=== PATIENT | female | born 2000 | race Caucasian/White ===

== ENCOUNTER 2025-04-24 11:34 | Outpatient (CLI) | payer OTHER, BC, MEDICAID, SELFPAY ==
[2025-04-24 11:39] VITALS: BP 172/93; PULSE 114
[2025-04-24 11:41] VITALS: RESP 16; BMI 41.5
[2025-04-24 11:54] VITALS: BP 154/90; PULSE 108
[2025-04-24 12:09] VITALS: BP 151/90; PULSE 102
[2025-04-24 12:24] VITALS: BP 154/91; PULSE 98
== END 2025-04-24 12:30 | disposition home or self-care (01) ==
LOC: OPOB 11:35 → OBGYN 11:36
PROVIDERS: Visit Provider Family Medicine
DX: O16.9 Unspecified maternal hypertension, unspecified trimester (principal); Z3A.00 Weeks of gestation of pregnancy not specified
CPT/HCPCS: 59025

== ENCOUNTER 2025-04-27 17:36 | Outpatient (CLI) | payer OTHER, BC, MEDICAID, SELFPAY ==
[2025-04-27 17:45] VITALS: BP 143/86; PULSE 98
[2025-04-27 18:05] VITALS: BP 141/79; PULSE 81
== END 2025-04-27 18:20 | disposition home or self-care (01) ==
LOC: OPOB 17:36 → OBGYN 17:37
PROVIDERS: Visit Provider Family Medicine
DX: O16.9 Unspecified maternal hypertension, unspecified trimester (principal); Z3A.00 Weeks of gestation of pregnancy not specified
CPT/HCPCS: 59025

== ENCOUNTER 2025-05-01 12:25 | Outpatient (CLI) | payer OTHER, BC, MEDICAID, SELFPAY ==
[2025-05-01 12:37] VITALS: BP 144/88; PULSE 115
[2025-05-01 12:38] VITALS: RESP 16; BMI 41.3
[2025-05-01 12:57] VITALS: BP 138/84; PULSE 96
== END 2025-05-01 13:03 | disposition home or self-care (01) ==
LOC: OPOB 12:30 → OBGYN 12:31
PROVIDERS: Visit Provider Family Medicine
DX: O13.9 Gestational [pregnancy-induced] hypertension without significant proteinuria, unspecified trimester (principal); Z3A.00 Weeks of gestation of pregnancy not specified
CPT/HCPCS: 59025

== ENCOUNTER 2025-05-03 10:12 | Outpatient (CLI) | payer OTHER, BC, MEDICAID, SELFPAY ==
[2025-05-03 10:17] VITALS: RESP 18
[2025-05-03 10:18] VITALS: BP 146/86; PULSE 99
[2025-05-03 10:22] VITALS: RESP 18; BMI 41.1
[2025-05-03 10:33] VITALS: BP 139/82; PULSE 92
[2025-05-03 10:40] VITALS: RESP 18
== END 2025-05-03 10:42 | disposition home or self-care (01) ==
LOC: OPOB 10:13 → OBGYN 10:21
PROVIDERS: Visit Provider Family Medicine
DX: O13.9 Gestational [pregnancy-induced] hypertension without significant proteinuria, unspecified trimester (principal); Z3A.00 Weeks of gestation of pregnancy not specified
CPT/HCPCS: 59025

== ENCOUNTER 2025-05-08 11:23 | Outpatient (CLI) | payer OTHER, BC, MEDICAID, SELFPAY ==
[2025-05-08 11:25] VITALS: BMI 41.8
[2025-05-08 11:45] VITALS: BP 147/90; PULSE 98
[2025-05-08 12:05] VITALS: BP 136/89; PULSE 100
[2025-05-08 12:25] VITALS: BP 136/87; PULSE 89
[2025-05-08 12:50] LABS: Nitrazine Paper, PH Negative
== END 2025-05-08 12:40 | disposition home or self-care (01) ==
LOC: OPOB 11:38 → OBGYN 11:40
PROVIDERS: Visit Provider Family Medicine
DX: O26.899 Other specified pregnancy related conditions, unspecified trimester (principal); Z3A.00 Weeks of gestation of pregnancy not specified; N89.8 Other specified noninflammatory disorders of vagina
CPT/HCPCS: 59025; 83986; 99211

== ENCOUNTER 2025-05-11 18:10 | Outpatient (CLI) | payer OTHER, BC, MEDICAID, SELFPAY ==
[2025-05-11] VITALS (7 sets, daily range): BP systolic 130–159; BP diastolic 70–94; PULSE 78–91; RESP 16–18; TEMP 35.8; O2SAT 99; BMI 41.5
[2025-05-11 19:05] LABS: Basophils % 0.2 %; Eosinophils % 0.1 %; Hematocrit 37.4 % (36-47); Lymphocytes # 3.9 10^3/uL (0.8-4.8); Lymphocytes % 29.7 %; Mean Corpuscular HGB Conc 32.1 g/dL (30-55); Mean Corpuscular Volume 87.4 fl (85-98); Mean Platelet Volume 11.8 fL (7.4-10.4); Monocytes # 0.9 10^3/uL (0.2-0.9); Monocytes % 7.1 %; Neutrophils # 8.25 10^3/uL (1.8-7.7); Neutrophils % 62.6 %; Nucleated Red Blood Cells % 0 %; Platelet Count 314 10^3/cmm (157-399); Red Blood Count 4.28 10^6/uL (3.85-5.65); Red Cell Distribution Width 13.2 % (12.1-15.1); White Blood Count 13.17 10^3/uL (3.29-11.43)
[2025-05-11 19:12] LABS: Bilirubin Urine Negative (Negative); Blood Urine Negative (Negative); Glucose Urine UA Negative (Normal); Ketones Urine Trace (Negative); Leukocyte Esterase Urine 1+ (Negative); Nitrate Urine Negative (Negative); Protein Urine Negative (Negative); Urine Appearance Cloudy (CLEAR); Urine Color Yellow (Yellow)
[2025-05-11 19:17] LABS: Add Urine Microscopic? YES; Bacteria Urine Trace /hpf; Hyaline Casts Urine 0.81 /lpf; RBC Urine 0-2 /hpf (0-2)
[2025-05-11 19:19] LABS: Add Urine Culture? No
[2025-05-11 19:21] LABS: Alanine Aminotransferase 14 U/L (0-33); Albumin Level 3.7 g/dL (3.5-5.2); Alkaline Phosphatase 166 U/L (35-105); Anion Gap 17.6 (5-19); Aspartate Amino Transferase 12 U/L (0-32); Blood Urea Nitrogen 8 mg/dL (6-20); Calcium 8.9 mg/dL (8.5-10.5); Carbon Dioxide 23 mmol/L (22-29); Chloride 95 mmol/L (98-107); Globulin 3.6 g/dL (1.3-4.6); Glomerular Filtration Rate 152.9 mL/min (90-130); Glucose 87 mg/dL (65-115); Osmolality Calculated 272 mOsm/kg (285-295); Potassium 3.6 mmol/L (3.5-5.1); Sodium 132 mmol/L (136-145); Total Bilirubin 0.2 mg/dL (0.15-1.2); Total Protein 7.3 g/dL (6.6-8.7); Uric Acid 3.8 mg/dL (2.4-5.7)
[2025-05-11 19:30] LABS: Urine Creatinine 114 mg/dL (28-217); Urine Protein Random 10 mg/dL
[2025-05-11 19:32] LABS: UPRO/UCREAT Ratio 0.09 mg/mg CR
== END 2025-05-11 19:48 | disposition home or self-care (01) ==
LOC: OPOB 18:10 → OBGYN 18:11
PROVIDERS: Visit Provider Family Medicine
DX: O13.9 Gestational [pregnancy-induced] hypertension without significant proteinuria, unspecified trimester (principal); Z3A.00 Weeks of gestation of pregnancy not specified
CPT/HCPCS: 36415; 59025; 80053; 81001; 82570; 84156; 84550; 85025; 99211

== ENCOUNTER 2025-05-15 18:40 | Outpatient (CLI) | payer OTHER, BC, MEDICAID, SELFPAY ==
[2025-05-15 18:40] VITALS: BMI 40.8
[2025-05-15 18:45] VITALS: BP 177/90; PULSE 83
[2025-05-15 19:00] VITALS: BP 163/79; PULSE 82
[2025-05-15 19:15] VITALS: BP 161/82; PULSE 80
[2025-05-15 19:30] VITALS: BP 163/85; PULSE 76
[2025-05-15 19:38] VITALS: BP 147/90; PULSE 78
[2025-05-15 19:45] VITALS: BP 144/88; PULSE 73
== END 2025-05-15 19:52 | disposition home or self-care (01) ==
LOC: OPOB 18:41 → OBGYN 18:42
PROVIDERS: Visit Provider Family Medicine
DX: O13.9 Gestational [pregnancy-induced] hypertension without significant proteinuria, unspecified trimester (principal); Z3A.00 Weeks of gestation of pregnancy not specified
CPT/HCPCS: 59025; 99211

== ENCOUNTER 2025-05-18 09:50 | Outpatient (CLI) | payer OTHER, BC, MEDICAID, SELFPAY ==
[2025-05-18 10:04] VITALS: BP 157/99; PULSE 100
[2025-05-18 10:08] VITALS: RESP 18
[2025-05-18 10:20] VITALS: BP 149/86; PULSE 94
[2025-05-18 10:34] VITALS: BP 157/82; PULSE 88
== END 2025-05-18 10:50 | disposition home or self-care (01) ==
LOC: OPOB 09:54 → OBGYN 09:54
PROVIDERS: PCP Family Medicine; Visit Provider Family Medicine
DX: O13.9 Gestational [pregnancy-induced] hypertension without significant proteinuria, unspecified trimester (principal); Z3A.00 Weeks of gestation of pregnancy not specified
CPT/HCPCS: 59025; 83986; 99211

== ENCOUNTER 2025-05-22 06:00 | Outpatient (CLI) | payer OTHER, BC, MEDICAID, SELFPAY ==
[2025-05-22] VITALS (14 sets, daily range): BP systolic 121–183; BP diastolic 61–99; PULSE 91–108; BMI 41.1
[2025-05-22 07:26] LABS: Hematocrit 38.6 % (36-47); Hemoglobin 12.40 g/dL (11.27-16.99); Mean Corpuscular HGB Conc 32.1 g/dL (30-55); Mean Corpuscular Hemoglobin 28.2 pg (27-33); Mean Corpuscular Volume 87.9 fl (85-98); Nucleated Red Blood Cells % 0 %; Platelet Count 283 10^3/cmm (157-399); Red Blood Count 4.39 10^6/uL (3.85-5.65); White Blood Count 12.03 10^3/uL (3.29-11.43)
[2025-05-22 07:26] LABS: Glucose Urine UA Negative (Normal); Nitrate Urine Negative (Negative); Specific Gravity, Urine 1.014 (1.005-1.030)
[2025-05-22 07:29] LABS: Add Urine Microscopic? YES
[2025-05-22 07:41] LABS: Alanine Aminotransferase 10 U/L (0-33); Albumin Level 3.4 g/dL (3.5-5.2); Alkaline Phosphatase 168 U/L (35-105); Anion Gap 17.0 (5-19); Aspartate Amino Transferase 11 U/L (0-32); Blood Urea Nitrogen 7 mg/dL (6-20); Calcium 8.8 mg/dL (8.5-10.5); Carbon Dioxide 21 mmol/L (22-29); Chloride 102 mmol/L (98-107); Creatinine Clr Calc Pharmacy 210.9578; Globulin 3.5 g/dL (1.3-4.6); Glucose 94 mg/dL (65-115); Osmolality Calculated 280 mOsm/kg (285-295); Potassium 4.0 mmol/L (3.5-5.1); Sodium 136 mmol/L (136-145); Total Protein 6.9 g/dL (6.6-8.7); Uric Acid 4.8 mg/dL (2.4-5.7)
[2025-05-22 07:48] LABS: UPRO/UCREAT Ratio 0.16 mg/mg CR
== END 2025-05-22 08:50 | disposition home or self-care (01) ==
LOC: OPOB 06:05 → OBGYN 06:07
PROVIDERS: PCP Family Medicine; Visit Provider Family Medicine
DX: O26.899 Other specified pregnancy related conditions, unspecified trimester (principal); Z3A.00 Weeks of gestation of pregnancy not specified; R10.9 Unspecified abdominal pain
CPT/HCPCS: 36415; 59025; 80053; 81001; 82570; 83986; 84156; 84550; 85025; 99211

== ENCOUNTER 2025-05-23 07:46 | Inpatient (IN) | payer OTHER, BC, MEDICAID, SELFPAY ==
[2025-05-23] VITALS (36 sets, daily range): BP systolic 132–183; BP diastolic 61–104; PULSE 65–122; RESP 17; BMI 40.3
--- NOTE | 2025-05-23 06:23 | PC.NURSE ---
RN at bedside pt taking home medication procardia 30mg at this time
[2025-05-23 07:57] LABS: Hematocrit 39.6 % (36-47); Hemoglobin 12.70 g/dL (11.27-16.99); Mean Corpuscular HGB Conc 32.1 g/dL (30-55); Mean Corpuscular Hemoglobin 27.9 pg (27-33); Mean Corpuscular Volume 87.0 fl (85-98); Nucleated Red Blood Cells % 0 %; Platelet Count 310 10^3/cmm (157-399); Red Blood Count 4.55 10^6/uL (3.85-5.65); White Blood Count 13.84 10^3/uL (3.29-11.43)
--- NOTE | 2025-05-23 18:13 | P.HPUD_ITS ---
Labor & Delivery H&P Update Date of Procedure: May 23, 2025 Date H&P Performed: 05/23/25 Admission Diagnosis: Worsening chronic hypertension with severely elevated blood pressures Planned procedure: Induction of labor and delivery Other information: This is a 24-year-old at 37 weeks 2 days gestation who presented to labor and delivery this morning complaining of severe headache. Her blood pressures were found to be severely elevated 183/99. 178/94. She does have a history of chronic hypertension and has been on nifedipine 30 mg XL throughout the pregn coral. Typically her pressures are 138-140. She was given her morning dose of nifedipine and her pressures did come down to the 150s however due to the fact that she is term with worsening and severe blood pressures decision was made to proceed with induction. Her PIH labs were not indicative of preeclampsia. The patient's cervix was closed. She was started on Cytotec. And it is in the middle of receiving her second dose. I saw and examined the patient and discussed with her the plan. Since her cervix is starting from closed and thick I do expect this to be a long induction.
[2025-05-23] MEDS: ampicillin 2,000 MG in sodium chloride 0.9% (plus) 50 ML 100 MG IV (23:36)
[2025-05-24] VITALS (81 sets, daily range): BP systolic 113–154; BP diastolic 54–100; PULSE 65–160; RESP 16; TEMP 36.8; O2SAT 92–100
[2025-05-24] MEDS: ampicillin 1,000 MG in sodium chloride 0.9% (plus) 50 ML 100 MG IV ×4 (03:12→15:58)
[2025-05-24] MEDS: oxytocin 30 UNIT/500 ML BAG IV (09:21)
--- NOTE | 2025-05-24 12:59 | PM.OPHPUD ---
Labor & Delivery H&P Update Date of Procedure: May 24, 2025 Date H&P Performed: 05/23/25 Admission Diagnosis: IUP at 37 weeks 3 days gestation Severe chronic hypertension Other information: When the patient was status post 3 doses of Cytotec her cervix was 1 cm dilated and 50% effaced. She was allowed to eat walk and shower in between her Cytotec doses and prior to starting Pitocin. We started her on high-dose Pitocin this morning. heart tones have been reassuring with moderate variability and positive accelerations, no deceleration. I evaluated the patient and she was a good 1 to 2 cm 60% effaced -1 station with the head well applied. Artificial rupture of membranes was performed digitally and clear fluid was noted. The patient is not experiencing pain at this time and is not yet requesting an epidural. Blood pressures have been right around 140.
--- NOTE | 2025-05-24 15:37 | ANES.PREANE2 ---
Pre-Anesthetic Assessment Height/Weight: Height 1.63 m Weight 106.594 kg Pulse Resp BP Pulse Ox O2 Del Method 108 H 17 126/59 99 Room Air 05/24/25 15:33 05/23/25 07:47 05/24/25 15:33 05/24/25 15:28 05/23/25 07:50 Preop Diagnosis: IUP labor epidural Familial anesthetic complications: none Was Beta Francine taken within 24 hours: N/A Was Clonidine taken within 24 hours: N/A Social No alcohol and No tobacco Exam alert, oriented x 3 and clear to auscultation bilaterally Airway Mallampati: Class II Dentition: full History/ROS No significant history except as noted Pulmonary Asthma (uses inhaler daily ) CV/HEM chronic htn None reported Hepatic None reported GI None reported Metabolic None reported Musc/skel None reported Neuropsych None reported Anesthetic Plan ASA status: 2 Anesthesia: Anesthesia Evaluation and Regional (specify below) (epidural ) Risk of > 500 ml blood loss (7ml/kg in children): Yes, adequate IV access and fluids planned Medications/Allergies Home Medications ?Medication ?Instructions ?Recorded ?Confirmed ?Last Taken ?Type aspirin 81 mg chewable tablet 1 tab PO DAILY 04/27/25 05/23/25 05/22/25 History 0700 nifedipine 30 mg tablet,extended 30 mg PO DAILY 04/27/25 05/23/25 05/22/25 History release Allergies Allergy/AdvReac Type Severity Reaction Status Date / Time crab Allergy ALGY-Anaphy Verified 05/23/25 19:06 laxis Current Medications Generic Name Dose Route Start Last Admin Trade Name Freq PRN Reason Stop Dose Admin Acetaminophen 650 mg 05/23/25 07:47 05/23/25 16:20 Acetaminophen 325 Mg Tablet PO 650 mg Q6H PRN Administration Mild pain or temp > 100.4 Sodium Chloride 1,000 mls @ 999 mls/hr 05/23/25 07:47 05/24/25 14:05 Sodium Chloride 0.9% IV 999 mls/hr .Q1H1M PRN Administration Per L&D Rescitation Protocol Ampicillin Sodium 1,000 mg/ 50 mls @ 100 mls/hr 05/24/25 03:00 05/24/25 12:52 Sodium Chloride IV Infused Q4H SHARRON Infusion Protocol Oxytocin 30 unit in 500 mls @ 1 mls/hr 05/24/25 09:15 05/24/25 12:00 Pitocin IV 20 milliunit/min .Q24H SHARRON 20 mls/hr Protocol Titration 1 MILLIUNIT/MIN Misoprostol 25 mcg 05/23/25 23:02 05/24/25 00:02 Misoprostol 100 Mcg Tablet VAGINAL 25 mcg ONCE PRN Administration LABOR INDUCTION PFSH Anesthesia Female Reproductive History : 1 Data Anesthesia 05/23/25 07:38 Short CBC 05/23/25 Range/Units 07:38 WBC 13.84 H (3.29-11.43) 10^3/uL Hgb 12.70 (11.27-16.99) g/dL Hct 39.6 (36-47) % MCV 87.0 (85-98) fl Plt Count 310 (157-399) 10^3/cmm Neut % (Auto) 72.0 % Neut # (Auto) 9.98 H (1.8-7.7) 10^3/uL Blood Bank 05/23/25 07:38 Blood Type A Positive Rho(D) Type Rh positive Antibody Screen Negative Anesthesia Procedures Epidural Time Out Performed: Yes Consents Signed: Procedure Consent Consent: requested by attending/covering physician, from patient, risks and benefits reviewed and patient agrees to proceed Lumbar Level: L3-L4 Epidural position: sitting Epidural procedure: sterile prep of area, 1% lidocaine to numb the area, 18 g needle, negative for paresthesia passed, neg for paresthesia, test dose given, 1.5% xylocaine 1:200k epi, 0.2% Ropivacaine bolus ml (5), placed PCEA, no systemic response, sterile dressing applied, L.U.D. no apparent complications and 0.2% Ropiavacaine @ mls/hr (13) Additional Comments: 1st attempt positive test dose, catheter removed, HR returned to baseline and pt tolerated well. 2nd attempt successful, SANTO 5.5cm, catheter easily threaded to 5cm. VS monitored throughout and remained stable. Pt educated on [employer] and reports adequate pain relief with epidural
[2025-05-24] MEDS: ROPivacaine premix 200 MG/100 ML PREMIX 10 MG EPIDURAL (15:58)
--- NOTE | 2025-05-24 19:06 | PM.DELIVERY ---
Delivery Note: Date of delivery: May 24, 2025 Procedure: Normal spontaneous vaginal Estimated blood loss (mL): 200 Pre-Delivery Course: The patient had routine care at [facility]. Her was complicated by chronic hypertension and she was on nifedipine 30 mg XL daily. She received monthly growth and LAURENCE ultrasounds starting at 33 weeks gestation she received twice weekly NSTs. labs: Blood type A+ antibody negative, hepatitis B nonreactive, hepatitis C nonreactive, HIV nonreactive, rubella nonimmune, GC chlamydia negative, RPR nonreactive, UDS negative, Q low risk, she passed her glucose tolerance test, she was GBS unknown. Delivery: This is a 24-year-old at 37 weeks 3 days gestation who was admitted for induction secondary to worsening chronic hypertension with blood pressures in the severe range. Her labs were not indicative of preeclampsia. Her cervix was not favorable and she was given 3 doses of Cytotec prior to starting Pitocin. She was GBS unknown and was started on ampicillin protocol. She received multiple doses prior to delivery. She then underwent artificial rupture of membranes with clear fluid. Rupture of membranes was approximately 6 hours prior to delivery. She received an epidural for pain management after which she progressed rapidly. She only had to push through 2 contractions. she had a normal spontaneous vaginal delivery of a viable female infant weight 2575 g, Apgars 8 and 9 over an intact perineum. The infant was suctioned at delivery and placed on the mother's chest. The cord was clamped and cut. The placenta was delivered grossly intact and normal to inspection. There was a small second-degree laceration that was sutured using 3-0 chromic. Mother and infant were doing well after delivery. Estimated blood loss 200 mL A&P Assessment and plan 1. Normal spontaneous vaginal delivery: PDMP PDMP Reviewed: Not Reviewed Coding Level of Care Code Acute Code for Chg Fwd Diagnoses Normal spontaneous vaginal delivery O80
[2025-05-25] VITALS (7 sets, daily range): BP systolic 131–150; BP diastolic 79–95; PULSE 76–97; RESP 16–18; TEMP 36.7–37; O2SAT 97–100
[2025-05-25 09:06] LABS: Hematocrit 38.3 % (36-47); Hemoglobin 12.30 g/dL (11.27-16.99); Mean Corpuscular HGB Conc 32.1 g/dL (30-55); Mean Corpuscular Hemoglobin 28.1 pg (27-33); Mean Corpuscular Volume 87.4 fl (85-98); Platelet Count 268 10^3/cmm (157-399); Red Blood Count 4.38 10^6/uL (3.85-5.65); White Blood Count 15.29 10^3/uL (3.29-11.43)
[2025-05-25] MEDS: PRENATAL VIT NO.130/IRON/FOLIC 1 EACH TABLET PO (09:12)
--- NOTE | 2025-05-25 14:43 | ANE.PACU2 ---
Inpatient post-anesthesia follow up: Airway intact: Yes Vital signs: Temperature 98.0 F Pulse Rate 87 Respiratory Rate 16 Blood Pressure 138/95 Pulse Oximetry 97 Oxygen Delivery Me thod Room Air Oxygen Flow Rate Fraction of Inspir ed Oxygen Hydration adequate: Yes Nausea and vomiting: No Pain level: 1 Mental status: Baseline Epidural Start/End: Epidural Start Date: 05/24/25 Epidural Start Time: 15:30 Epidural End Date: 05/24/25 Epidural End Time: 23:00
--- NOTE | 2025-05-25 16:52 | PM.DCS ---
Discharge Providers Date of Admission: 05/23/25 07:46 Date of Discharge: May 25, 2025 Attending Provider at Admission: Magnolia Marrero MD Attending Provider at Discharge: Magnolia Marrero MD Primary Care Provider: Magnolia Marrero MD Diagnoses at Discharge Discharge Diagnosis 1. Normal spontaneous vaginal delivery: Reason for Visit Reason for Visit: Headache, N/V Hospital Course Hospital Course This is a 24-year-old G1 now P1 who delivered via normal spontaneous vaginal delivery at 37 weeks 3 days gestation. Mother and are doing well. Her bleeding is about average. She has no significant pain. She is comfortable with discharge home. Physical Exam Narrative: Alert and oriented, holding the infant in bed, heart regular rate and rhythm, lungs clear to auscultation bilaterally, abdomen is soft and nontender, extremities have trace edema but no calf tenderness Urinary Catheter Management: Mathis: Cath Placed During This Visit: yes, but has since been removed by the nurse Reason for Continuing Indwelling Catheter: Decision to DC Catheter Urinary Catheter Date of Insertion: 05/24/25 Urinary Catheter Time of Insertion: 15:35 Date Urinary Catheter Removed: 05/24/25 Time Urinary Catheter Discontinued: 18:30 Discharge Data Studies Completed and Pending Pending at discharge Category Date Time Status Group B Streptococcus Culture Routine Lab 05/23/25 10:32 Results Laboratory Results WBC 15.29 10^3/uL (3.29-11.43) H 05/25/25 08:40 RBC 4.38 10^6/uL (3.85-5.65) 05/25/25 08:40 Hgb 12.30 g/dL (11.27-16.99) 05/25/25 08:40 Hct 38.3 % (36-47) 05/25/25 08:40 MCV 87.4 fl (85-98) 05/25/25 08:40 MCH 28.1 pg (27-33) 05/25/25 08:40 MCHC 32.1 g/dL (30-55) 05/25/25 08:40 RDW 13.3 % (12.1-15.1) 05/25/25 08:40 Plt Count 268 10^3/cmm (157-399) 05/25/25 08:40 MPV 12.6 fL (7.4-10.4) H 05/25/25 08:40 Neut % (Auto) 72.0 % 05/23/25 07:38 Lymph % (Auto) 21.4 % 05/23/25 07:38 [place] % (Auto) 5.9 % 05/23/25 07:38 Eos % (Auto) 0.1 % 05/23/25 07:38 Baso % (Auto) 0.2 % 05/23/25 07:38 Neut # (Auto) 9.98 10^3/uL (1.8-7.7) H 05/23/25 07:38 Lymph # (Auto) 3.0 10^3/uL (0.8-4.8) 05/23/25 07:38 [place] # (Auto) 0.8 10^3/uL (0.2-0.9) 05/23/25 07:38 Eos # (Auto) 0.0 10^3/uL (0.0-0.8) 05/23/25 07:38 Baso # (Auto) 0.0 10^3/uL (0.0-0.1) 05/23/25 07:38 Nucleated RBC % (auto) 0 % 05/23/25 07:38 Nucleated RBCs # 0.0 /100WBC 05/23/25 07:38 Blood Type A Positive 05/23/25 07:38 Rho(D) Type Rh positive 05/23/25 07:38 Antibody Screen Negative 05/23/25 07:38 Vitals Last Vital Signs Temp 98.2 F 05/25/25 16:13 Pulse 83 05/25/25 16:13 Resp 16 05/25/25 16:13 BP 133/89 05/25/25 16:13 Pulse Ox 97 05/25/25 16:13 O2 Del Method Room Air 05/25/25 16:13 Discharge Plan Discharge Patient Disposition: Home Condition: Stable Prescriptions: Discontinued nifedipine 30 mg Tablet Extended Release 30 mg PO DAILY aspirin [Baby Aspirin] 81 mg Tablet,Chewable 1 tab PO DAILY Referrals: Magnolia Marrero MD [Primary Care Provider, Family Practice] Referral Note: in 2 weeks for BP check Discharge Diet: Usual diet Discharge Activity: Limit activity as instructed Patient Instructions: Depression (DC), Bleeding (DC), Preeclampsia and Eclampsia After Delivery (GEN), Hemorrhage (DC), OB Discharge Report, OB Food/Drug Interaction Guide, OB Care at Home, Opioid Safety, OB Home Care, OB Vaginal Deliveries, Patient Portal & Jessica Instructions Activity Restrictions/Additional Instructions: Nothing per vagina for 6 weeks Discharge Attestations Time Spent in Discharge Care*: less than 30 min Quality Metrics Clinical Quality Measures [ No reported AMI, CVA or VTE this stay] Coding Level of Care Code Acute Code for Chg Fwd Diagnoses Normal spontaneous vaginal delivery O80
[2025-05-25] MEDS: measles,mumps,rubella pf Vial (w/diluent) 0.5 ML SUBCUT (19:49)
== END 2025-05-25 20:15 | disposition home or self-care (01) | DRG 807 ==
LOC: OPOB 07:46 → OBGYN 07:46
PROVIDERS: Admitting Provider Family Medicine; PCP Family Medicine; Visit Provider Family Medicine
DX: O10.92 Unspecified pre-existing hypertension complicating childbirth (principal); Z37.0 Single live birth; O70.1 Second degree perineal laceration during delivery; Z3A.37 37 weeks gestation of pregnancy
CPT/HCPCS: 36415; 51702; 59025; 59409; 85025; 85027; 86850; 86900; 87081; 90707; 96372; 99211; J0290; J2590; J2795; J7030; J7120; J7121; J9999; Q0162